=== PATIENT | male | born 1995 | race Two or more races ===

== ENCOUNTER 2025-02-23 22:09 | Inpatient (IN) | payer OTHER ==
[~2025-02-23] VITALS: Ht 165.1 cm; Wt 75.9 kg
[~2025-02-23 22:09] MED LIST: ACET-2247 PO; MAGN-169 PO
[2025-02-24 00:37] LABS: COVID AG,FIA SOURCE NASAL SWAB
[2025-02-24 00:42] LABS: APPEARANCE,URINE CLEAR (CLEAR); GLUCOSE, URINE (UA) NEGATIVE (NEGATIVE); LEUKOCYTE ESTERASE ,URINE NEGATIVE (NEGATIVE); NITRATE,URINE NEGATIVE (NEGATIVE); OCCULT BLOOD,URINE NEGATIVE (NEGATIVE); PH,URINE DRUG SCREEN 6.0 (5.0-8.0); SPECIFIC GRAVITIY, URINE 1.025 (1.003-1.030)
[2025-02-24] MEDS: LORazepam 2 MG/ML VIAL IM ONE (00:44)
[2025-02-24 00:47] LABS: ALCOHOL, URINE DRUG SCREEN NEGATIVE (NEGATIVE); AMPHET/METH SCREEN,URINE NEGATIVE (NEGATIVE); BARBITURATE SCREEN, URINE NEGATIVE (NEGATIVE); CANNABINOID SCREEN,URINE NEGATIVE (NEGATIVE); COCAINE SCREEN,URINE NEGATIVE (NEGATIVE); METHADONE SCREEN, URINE NEGATIVE (NEGATIVE)
[2025-02-24 01:04] LABS: SARS-COV2 (COVID) ANTIGEN,FIA Negative (Negative)
[2025-02-24 02:30] LABS: PLATELET COUNT (AUTO) 232 K/uL (150-450); RED BLOOD CELL COUNT(AUTO) 4.54 MIL/uL (4.50-5.90); RED CELL DISTRIBUTION WIDTH 15.4 % (11.5-14.5); WHITE BLOOD COUNT (AUTO) 8.7 K/uL (4.5-11.0)
[2025-02-24 02:33] LABS: CALCIUM, TOTAL 8.5 mg/dL (8.8-10.5); CREATININE 0.93 mg/dL (0.60-1.30); GLOMERULAR FILTR. RATE CALC > 60 mL/min (>60); GLUCOSE,RANDOM 125 mg/dL (70-110); SODIUM SERUM 143 mmol/L (136-145); UREA NITROGEN, BLOOD 18 mg/dL (7-18)
[2025-02-24 02:39] LABS: ASPARTATE AMINOTRANSFERASE 14 U/L (15-37); TOTAL PROTEIN, SERUM 6.8 g/dL (6.4-8.2)
[2025-02-24 02:40] LABS: ALCOHOL, BLOOD (SERUM) < 3 mg/dL (0-10)
[2025-02-24] MEDS ORDERED: ACETAMINOPHEN 325 MG TABLET PO PRN (05:45)
[2025-02-24] MEDS: FAMOTIDINE 20 MG TABLET PO SCH (08:57)
[2025-02-24 12:43] VITALS: BP 119/80; PULSE 64; RESP 18; TEMP 98.7; O2SAT 100
[2025-02-24 19:44] VITALS: BP 100/60; PULSE 69; RESP 18; TEMP 98.2; O2SAT 98
[2025-02-25 04:26] VITALS: BP 96/70; PULSE 68; RESP 18; TEMP 97.5; O2SAT 97
[2025-02-25 09:04] VITALS: BP 103/56; PULSE 63; RESP 18; TEMP 98.2; O2SAT 100
[2025-02-25 20:45] VITALS: BP 106/78; PULSE 77; RESP 18; TEMP 98.6; O2SAT 99
[2025-02-26 04:12] VITALS: BP 123/88; PULSE 81; RESP 18; TEMP 97.9; O2SAT 100
[2025-02-26 08:00] VITALS: BP 119/95; PULSE 78; RESP 20; TEMP 97.6; O2SAT 100
[2025-02-26 19:49] VITALS: BP 130/72; PULSE 80; RESP 20; TEMP 97.3; O2SAT 100
[2025-02-27 05:09] VITALS: BP 98/65; PULSE 67; RESP 18; TEMP 97.9; O2SAT 98
[2025-02-27 08:00] VITALS: RESP 19
[2025-02-27 15:00] VITALS: BP 110/69; PULSE 77; RESP 19; TEMP 98
[2025-02-27 19:50] VITALS: PULSE 73; RESP 20; TEMP 98.6; O2SAT 99
[2025-02-28 00:19] VITALS: BP 104/60
[2025-02-28 04:20] VITALS: BP 96/59; PULSE 54; RESP 18; TEMP 97.7; O2SAT 100
[2025-02-28 08:12] VITALS: BP 98/59; PULSE 68; RESP 18; TEMP 97.9; O2SAT 100
[2025-02-28 20:09] VITALS: BP 124/70; PULSE 85; RESP 20; TEMP 98.2; O2SAT 98
[2025-02-28] MEDS: ZOLPIDEM TARTRATE 5 MG TABLET PO PRN (20:26)
[2025-03-01 04:03] VITALS: BP 128/69; PULSE 84; RESP 20; TEMP 97.5; O2SAT 98
[2025-03-01] MEDS: MAGNESIUM HYDROXIDE SUSPENSION 30 ML UDCUP PO PRN (06:13)
[2025-03-01 08:31] VITALS: BP 132/98; PULSE 80; RESP 20; TEMP 97.9; O2SAT 100
[2025-03-01] MEDS ORDERED: RISP-32 PO (12:28)
== END 2025-03-01 17:39 | DRG 885 ==
LOC: EMS 22:09 → EDH 02-24 05:28 → 6S 02-24 12:13
PROVIDERS: ADMIT Internal Medicine; ATTEND Internal Medicine
PROC: GZ52ZZZ Individual Psychotherapy, Cognitive (ICD-10-PCS; principal; 2025-02-28)
DX: F20.0 Paranoid schizophrenia (principal); R45.851 Suicidal ideations; R25.1 Tremor, unspecified; Z20.822 Contact with and (suspected) exposure to COVID-19
CPT/HCPCS: 80048; 80076; 80307; 81003; 85025; 96372; 99291; G0480; J1200; J1630; J2060

== ENCOUNTER 2025-04-02 14:03 | Inpatient (IN) | payer OTHER ==
[~2025-04-02] VITALS: Ht 172.7 cm; Wt 72.7 kg
[~2025-04-02 14:03] MED LIST changes: -ACET-2247 PO; -MAGN-169 PO; +RISP-32 PO
[2025-04-02 15:15] LABS: PLATELET COUNT (AUTO) 234 K/uL (150-450); RED BLOOD CELL COUNT(AUTO) 5.05 MIL/uL (4.50-5.90); RED CELL DISTRIBUTION WIDTH 13.5 % (11.5-14.5); WHITE BLOOD COUNT (AUTO) 5.6 K/uL (4.5-11.0)
[2025-04-02 15:23] LABS: CALCIUM, TOTAL 8.8 mg/dL (8.8-10.5); CREATININE 0.97 mg/dL (0.60-1.30); GLOMERULAR FILTR. RATE CALC > 60 mL/min (>60); GLUCOSE,RANDOM 95 mg/dL (70-110); SODIUM SERUM 140 mmol/L (136-145); UREA NITROGEN, BLOOD 16 mg/dL (7-18)
[2025-04-02] MEDS: LORazepam 2 MG/ML VIAL IM ONE (15:33)
[2025-04-02] MEDS ORDERED: ACETAMINOPHEN 325 MG TABLET PO PRN (15:45)
[2025-04-02] MEDS ORDERED: MAGNESIUM HYDROXIDE SUSPENSION 30 ML UDCUP PO PRN (15:45)
[2025-04-02] MEDS ORDERED: ONDANSETRON HCL 4 MG/2 ML VIAL IVP PRN (15:45)
[2025-04-02] MEDS ORDERED: BISACODYL 10 MG RECTAL RECTAL SUPPOSITORY PR PRN (15:45)
[2025-04-02 15:47] LABS: COVID AG,FIA SOURCE NASAL SWAB
[2025-04-02 15:59] LABS: SARS-COV2 (COVID) ANTIGEN,FIA Negative (Negative)
[2025-04-02 17:00] VITALS: BP 105/60; PULSE 66; RESP 20; TEMP 97.9; O2SAT 100
[2025-04-02] MEDS: HEPARIN SODIUM,PORCINE 5,000 UNITS/ML VIAL SQ SCH (17:47)
[2025-04-02 20:09] VITALS: BP 119/67; PULSE 89; RESP 19; TEMP 97.6; O2SAT 98
[2025-04-02] MEDS: DOCUSATE SODIUM 100 MG CAPSULE PO SCH (21:10)
[2025-04-02] MEDS: ZOLPIDEM TARTRATE 5 MG TABLET PO PRN (22:16)
[2025-04-02] MEDS: LORazepam 2 MG/ML VIAL IM PRN (22:47)
[2025-04-03] MEDS: PANTOPRAZOLE SODIUM 40 MG DR TABLET PO SCH (11:48)
[2025-04-03 20:00] VITALS: BP 99/57; PULSE 64; RESP 18; TEMP 98.8; O2SAT 97
[2025-04-04 05:08] VITALS: BP 99/62; PULSE 59; RESP 18; TEMP 97.7; O2SAT 97
[2025-04-04 08:39] VITALS: BP 107/68; PULSE 82; RESP 18; TEMP 97.2; O2SAT 100
[2025-04-04 19:57] VITALS: BP 123/78; PULSE 70; RESP 18; TEMP 97.9; O2SAT 99
[2025-04-05 05:42] VITALS: BP 114/77; PULSE 80; RESP 18; TEMP 97.2; O2SAT 96
[2025-04-05 09:34] VITALS: BP 115/74; PULSE 74; RESP 18; TEMP 97.3; O2SAT 97
[2025-04-05 16:47] VITALS: BP 101/59; PULSE 75; RESP 18; TEMP 97.1; O2SAT 97
[2025-04-05 19:53] VITALS: BP 113/89; PULSE 89; RESP 18; TEMP 97.6; O2SAT 97
[2025-04-06 05:11] VITALS: BP 110/61; PULSE 60; RESP 18; TEMP 97.8; O2SAT 98
[2025-04-06 09:12] VITALS: BP 105/72; PULSE 91; RESP 20; TEMP 97.6; O2SAT 99
[2025-04-06] MEDS ORDERED: RISP2TAB45 PO (13:41)
== END 2025-04-06 20:10 | DRG 885 ==
LOC: EMS 14:03 → EDH 15:33 → 6S 16:56
PROVIDERS: ADMIT Internal Medicine; ATTEND Internal Medicine
DX: F20.0 Paranoid schizophrenia (principal); Z20.822 Contact with and (suspected) exposure to COVID-19
CPT/HCPCS: 80048; 85025; 96372; 99285; G0480; J1200; J1630; J1644; J2060